=== PATIENT | female | born 1985 | race Caucasian/White ===

== ENCOUNTER → 2017-12-05 13:30 | Outpatient (REF) | payer MEDICAID, SELFPAY ==
[2017-12-05 18:50] LABS: Amphetamine/Metha Screen,Urine Negative ng/mL (<1000); Barbiturates Screen,Urine Negative ng/mL (<200); Benzodiazepines Screen,Urine Positive ng/mL (200); Cannabinoid Screen,Urine Negative ng/mL (<50); Cocaine Screen,Urine Negative ng/g (<300); Methadone Screen,Urine Negative ng/mL (<300); Opiate Screen,Urine Negative ng/mL (<300); Phencyclidine Screen,Urine Negative ng/mL (<25)
== END ==
LOC: LAB 13:30
PROVIDERS: Visit Provider Nurse Practitioner Family
DX: Z79.899 Other long term (current) drug therapy (principal)
CPT/HCPCS: 80305

== ENCOUNTER → 2017-12-12 09:39 | Outpatient (REF) | payer MEDICAID, SELFPAY ==
[2017-12-12 13:42] LABS: Amphetamine/Metha Screen,Urine Negative ng/mL (<1000); Barbiturates Screen,Urine Negative ng/mL (<200); Benzodiazepines Screen,Urine Positive ng/mL (200); Cannabinoid Screen,Urine Negative ng/mL (<50); Cocaine Screen,Urine Negative ng/g (<300); Methadone Screen,Urine Negative ng/mL (<300); Opiate Screen,Urine Negative ng/mL (<300); Phencyclidine Screen,Urine Negative ng/mL (<25)
== END ==
LOC: LAB 09:39
PROVIDERS: Visit Provider Emergency Medicine
DX: F41.9 Anxiety disorder, unspecified (principal)
CPT/HCPCS: 80305

== ENCOUNTER 2020-07-04 16:12 | Emergency (ER) | payer OTHER, SELFPAY ==
[2020-07-04 16:38] VITALS: BP 126/87; PULSE 71; RESP 19; TEMP 36.6; O2SAT 99; BMI 27.3
--- NOTE | 2020-07-04 16:41 | HMH.EDUTC ---
[facility] [place] Disposition Clinical Impression: Exposure to COVID-19 virus Disposition: Home, Self-Care Condition on Discharge: Good Instructions: Preventing the Spread of Coronavirus Discharge Instructions Additional Instructions: Drink plenty of fluids. Take tylenol or ibuprofen for pain or fever. Take the medications as directed. Follow up with your regular doctor. GO TO THE ER FOR ANY WORSENING SYMPTOMS Referrals: PCP,No [Primary Care Provider] - Time of Disposition: 16:42 Medical Decision Making - Medical Records Medical records reviewed: No: I reviewed the patient's medical records. - Guille Inquiry Pt receiving controlled substance: No Vital Signs: 07/04/20 16:38 07/04/20 16:48 Temperature 97.8 F 97.8 F Temperature Source Oral Oral Pulse Rate 71 Pulse Rate [Radial] 71 Respiratory Rate 19 19 Blood Pressure 126/87 Blood Pressure [Right Arm] 126/87 Blood Pressure Mean [Right Arm] 100 Blood Pressure Source Automatic Cuff Blood Pressure Source [Right Arm] Automatic Cuff Blood Pressure Position Sitting Blood Pressure Position [Right Arm] Sitting 02 Sat by Pulse Oximetry 99 Oxygen Delivery Method Room Air Room Air Orders (Tests/Meds): ORDERS Category Date Time Status Covid-19 Nasal PCR ([facility]) Stat Lab 07/04/20 16:23 Received [facility] [place] HPI - General Stated complaint: covid test Time Seen by Provider: 07/04/20 16:41 Mode of Arrival: Ambulatory Source of Information: Patient Limitations: No Limitations Description of Symptoms (Recalled from Triage Doc. by RN): covid test, no symptoms, no exposure HEENT Symptoms (Recalled from RN notes): No Resp Symptoms (Recalled from RN notes): No Skin Symptoms (Recalled from RN notes): No MS Symptoms (Recalled from RN notes): No Functional Status (Recalled from RN notes): wnl - History of Present Illness Provider Complaint: She was exposed to covid by a coworker. She denies any symptoms at this time. - Related Data Home Medications Medication Instructions Recorded Confirmed buprenorphine 8 mg-naloxone 2 mg 2 tab SUBLINGUAL DAILY tab 06/19/20 06/19/20 sublingual tablet Previous Rx's Medication Instructions Recorded amoxicillin 875 mg tablet 875 mg PO BID #20 tab 06/19/20 buspirone 5 mg tablet 5 mg PO BID #60 tab 06/19/20 lisinopril 10 1 tab PO DAILY #90 tab 06/19/20 mg-hydrochlorothiazide 12.5 mg tablet norgestimate-ethinyl estradiol 1 tab PO DAILY #28 tab 06/19/20 0.18 mg/0.215mg/0.25mg-35 mcg(28)tablet ropinirole 1 mg tablet 1 mg PO HS #30 tab 06/19/20 Allergies Allergy/AdvReac Type Severity Reaction Status Date / Time No Known Allergies Allergy Verified 06/19/20 08:42 - Worker's Comp Is this a Worker's Comp case?: No [facility] History - Hepatitis A Screen Drug use history?: No High risk sexual behaviors?: No History of sexually transmitted infection?: No Currently employed?: No Childcare worker?: No Do you have indoor plumbing?: Yes Do you have electricity?: Yes Attestation statement:: This patient has been screened for Hepatitis A risk factors. I have reviewed the patient's past medical history: Yes Medical History: Reports:: Anxiety, Asthma, Depression, Hypertension Other Medical History: Reports: Other Comment: BACK SPASMS. RESTLESS LEG SYNDROME Laterality Cases: Bilateral: Tonsillectomy Other Surgeries: Yes: Other Amputation: No Fractures: Yes Comment: RIGHT FOOT - Social History Smoking Status: Never smoker Alcohol Intake: never Substance Use Type: former substance user, heroin Occupational Status: other Housing: house Household Members: family - Psychiatric History Pschychiatric History:: Reports:: Anxiety, Depression Family Hx:: Hypertension ROS Obtained: Yes All systems reviewed & no additional complaints - Constitutional Constitutional: Reports system reviewed and no additional complaints, except as docu - Eyes Eyes: Reports system reviewed and no additional compla
[2020-07-04 16:48] VITALS: BP 126/87; PULSE 71; RESP 19; TEMP 36.6; O2SAT 99
--- NOTE | 2020-07-05 09:32 | PC.NURSE ---
voice mail left for patient to return call
--- NOTE | 2020-07-05 10:56 | PC.NURSE ---
PATIENT NOTIFIED OF POSITIVE COVID TEST AT THIS TIME
== END 2020-07-04 16:50 | disposition home or self-care (01) ==
PROVIDERS: Emergency Provider Nurse Practitioner Family
DX: U07.1 COVID-19 (principal); I10 Essential (primary) hypertension; F41.8 Other specified anxiety disorders
CPT/HCPCS: 99201; U0003

== ENCOUNTER 2020-07-13 13:48 | Emergency (ER) | payer OTHER, SELFPAY ==
[2020-07-13 13:56] VITALS: BP 151/80; PULSE 78; RESP 20; TEMP 36.9; O2SAT 100; BMI 28.1
--- NOTE | 2020-07-13 14:01 | HMH.EDUTC ---
[facility] [place] Disposition Clinical Impression: Encounter for laboratory testing for COVID-19 virus Disposition: Home, Self-Care Condition on Discharge: Good Instructions: Preventing the Spread of Coronavirus Discharge Instructions Additional Instructions: You were tested for today for COVID19 your test result should be back in the next 24-48 hours, you may call to the [facility] to see if your test results are back in the next 48 hours [phone] [facility] hours are 9am-9pm You was given a handout with instructions for Self Quarantine and Self isolation for while you wait on test results and what to do if they are positive If you are positive the Health Dept will be contacting you also Referrals: PCP,No [Primary Care Provider] - As needed Time of Disposition: 14:08 Medical Decision Making - Guille Inquiry Pt receiving controlled substance: Estelita Han was queried for this patient: No Vital Signs: 07/13/20 13:56 Temperature 98.4 F Temperature Source Oral Pulse Rate [Radial] 78 Respiratory Rate 20 Blood Pressure [Right Arm] 151/80 H Blood Pressure Mean [Right Arm] 103 Blood Pressure Source [Right Arm] Automatic Cuff Blood Pressure Position [Right Arm] Sitting 02 Sat by Pulse Oximetry 100 Oxygen Delivery Method Room Air Orders (Tests/Meds): ORDERS Category Date Time Status Covid-19 Nasal PCR [facility] Stat Lab 07/13/20 13:52 Received [facility] [place] HPI - General Stated complaint: Covid positive, covid test Time Seen by Provider: 07/13/20 14:01 Mode of Arrival: Ambulatory Source of Information: Patient Limitations: No Limitations Description of Symptoms (Recalled from Triage Doc. by RN): COVID TEST LAST TUESDAY WANTS RE TEST HEENT Symptoms (Recalled from RN notes): No Resp Symptoms (Recalled from RN notes): No Skin Symptoms (Recalled from RN notes): No MS Symptoms (Recalled from RN notes): No Functional Status (Recalled from RN notes): WNL - History of Present Illness Provider Complaint: Patient states that she recently tested positive for COVID on 07/04/20 States that her husbands job wanted her to come back in and get tested again before he can return to work States that she is not having any symptoms and has not been contacted yet by the Health Dept on what she should be doing - Related Data Home Medications Medication Instructions Recorded Confirmed buprenorphine 8 mg-naloxone 2 mg 2 tab SUBLINGUAL DAILY tab 06/19/20 06/19/20 sublingual tablet Previous Rx's Medication Instructions Recorded amoxicillin 875 mg tablet 875 mg PO BID #20 tab 06/19/20 buspirone 5 mg tablet 5 mg PO BID #60 tab 06/19/20 lisinopril 10 1 tab PO DAILY #90 tab 06/19/20 mg-hydrochlorothiazide 12.5 mg tablet norgestimate-ethinyl estradiol 1 tab PO DAILY #28 tab 06/19/20 0.18 mg/0.215mg/0.25mg-35 mcg(28)tablet ropinirole 1 mg tablet 1 mg PO HS #30 tab 06/19/20 albuterol sulfate 90 mcg/actuation 2 puff INHALATION Q6H PRN #18 g 07/09/20 aerosol inhaler Allergies Allergy/AdvReac Type Severity Reaction Status Date / Time No Known Allergies Allergy Verified 06/19/20 08:42 - Worker's Comp Is this a Worker's Comp case?: No [facility] History - Hepatitis A Screen Drug use history?: No High risk sexual behaviors?: No History of sexually transmitted infection?: No Currently employed?: No Childcare worker?: No Do you have indoor plumbing?: Yes Do you have electricity?: Yes Attestation statement:: This patient has been screened for Hepatitis A risk factors. I have reviewed the patient's past medical history: Yes Medical History: Reports:: Anxiety, Asthma, Depression, Hypertension Other Medical History: Reports: Other Comment: BACK SPASMS. RESTLESS LEG SYNDROME Laterality Cases: Bilateral: Tonsillectomy Other Surgeries: Yes: Other Amputation: No Fractures: Yes Comment: RIGHT FOOT - Social History Smoking Status: Never smoker Alcohol Intake: never Substance Use Type: former substance user, heroin Occupationa
[2020-07-13 14:21] VITALS: BP 151/80; PULSE 78; RESP 20; TEMP 36.9; O2SAT 100
[2020-07-14 09:50] LABS: Covid-19 Nasal PCR Sendout UK Not Detected
== END 2020-07-13 14:23 | disposition home or self-care (01) ==
PROVIDERS: Emergency Provider Nurse Practitioner
DX: Z86.19 Personal history of other infectious and parasitic diseases (principal)
CPT/HCPCS: 99201; U0003

== ENCOUNTER 2020-08-15 15:37 | Emergency (ER) | payer OTHER, SELFPAY ==
[2020-08-15 15:50] VITALS: BP 146/95; PULSE 83; RESP 14; TEMP 36.4; O2SAT 100; BMI 27.3
--- NOTE | 2020-08-15 16:15 | HMH.EDUTC ---
[facility] [place] Clinical Impression: Exposure to COVID-19 virus Disposition: Home, Self-Care Condition on Discharge: Good Instructions: Preventing the Spread of Coronavirus Discharge Instructions Referrals: PCP,No [Primary Care Provider] - Time of Disposition: 16:16 Medical Decision Making - Guille Inquiry Pt receiving controlled substance: No Vital Signs: 08/15/20 15:50 Temperature 97.6 F Temperature Source Oral Pulse Rate [Right Brachial] 83 Respiratory Rate 14 Blood Pressure [Right Arm] 146/95 H Blood Pressure Mean [Right Arm] 112 Blood Pressure Source [Right Arm] Automatic Cuff Blood Pressure Position [Right Arm] Sitting 02 Sat by Pulse Oximetry 100 Oxygen Delivery Method Room Air Orders (Tests/Meds): ORDERS Category Date Time Status Covid-19 Nasal PCR ([facility]) Routine Lab 08/15/20 16:00 Received [facility] [place] HPI - General Stated complaint: covid test Time Seen by Provider: 08/15/20 16:15 Mode of Arrival: Ambulatory Source of Information: Patient Limitations: No Limitations Description of Symptoms (Recalled from Triage Doc. by RN): COVID TEST D/T EXPOSURE. DENIES SYMPTOMS HEENT Symptoms (Recalled from RN notes): No Resp Symptoms (Recalled from RN notes): No Skin Symptoms (Recalled from RN notes): No MS Symptoms (Recalled from RN notes): No Functional Status (Recalled from RN notes): WNL - History of Present Illness Provider Complaint: COVID19 exposure 1 week ago and would like to be tested. No symptoms. Relieving factors: none Exacerbating factors: none Associated symptoms: denies other symptoms Treatments prior to arrival: none - Related Data Home Medications Medication Instructions Recorded Confirmed buprenorphine 8 mg-naloxone 2 mg 2 tab SUBLINGUAL DAILY tab 06/19/20 06/19/20 sublingual tablet Previous Rx's Medication Instructions Recorded amoxicillin 875 mg tablet 875 mg PO BID #20 tab 06/19/20 buspirone 5 mg tablet 5 mg PO BID #60 tab 06/19/20 lisinopril 10 1 tab PO DAILY #90 tab 06/19/20 mg-hydrochlorothiazide 12.5 mg tablet norgestimate-ethinyl estradiol 1 tab PO DAILY #28 tab 06/19/20 0.18 mg/0.215mg/0.25mg-35 mcg(28)tablet ropinirole 1 mg tablet 1 mg PO HS #30 tab 06/19/20 albuterol sulfate 90 mcg/actuation See Rx Instructions .ROUTE 07/14/20 aerosol inhaler .COMPLEX #18 g Allergies Allergy/AdvReac Type Severity Reaction Status Date / Time No Known Allergies Allergy Verified 06/19/20 08:42 - Worker's Comp Is this a Worker's Comp case?: No [facility] History - Hepatitis A Screen Drug use history?: No High risk sexual behaviors?: No History of sexually transmitted infection?: No Currently employed?: No Childcare worker?: No Do you have indoor plumbing?: Yes Do you have electricity?: Yes Attestation statement:: This patient has been screened for Hepatitis A risk factors. I have reviewed the patient's past medical history: Yes Medical History: Reports:: Anxiety, Asthma, Depression, Hypertension Other Medical History: Reports: Other Comment: BACK SPASMS. RESTLESS LEG SYNDROME Laterality Cases: Bilateral: Tonsillectomy Other Surgeries: Yes: Other Amputation: No Fractures: Yes Comment: RIGHT FOOT - Social History Smoking Status: Never smoker Alcohol Intake: never Substance Use Type: former substance user, heroin Occupational Status: other Housing: house Household Members: family - Psychiatric History Pschychiatric History:: Reports:: Anxiety, Depression Family Hx:: Hypertension ROS Obtained: Yes All systems reviewed & no additional complaints Physical Exam - General General appearance: alert, in no apparent distress - Head Head exam: normocephalic - Eye Eye exam: Present: PERRL - ENT ENT exam: Present: normal oropharynx - Respiratory Respiratory exam: Present: normal lung sounds bilaterally - Cardiovascular Cardiovascular exam: Present: regular rate, normal rhythm - Neurological Exam Neurological exam:
[2020-08-15 16:16] VITALS: BP 146/95; PULSE 83; RESP 14; TEMP 36.4; O2SAT 100
== END 2020-08-15 16:24 | disposition home or self-care (01) ==
PROVIDERS: Emergency Provider Physician Assistant
DX: Z20.822 Contact with and (suspected) exposure to COVID-19 (principal); I10 Essential (primary) hypertension; F41.8 Other specified anxiety disorders; J45.909 Unspecified asthma, uncomplicated; G25.81 Restless legs syndrome; Z79.899 Other long term (current) drug therapy
CPT/HCPCS: 99202; G0463; U0003

== ENCOUNTER 2021-03-20 17:18 | Emergency (ER) | payer OTHER, SELFPAY ==
[2021-03-20 17:20] VITALS: BP 105/64; PULSE 61; RESP 20; TEMP 37; O2SAT 98; BMI 28.8
--- NOTE | 2021-03-20 17:58 | HMH.EDUTC ---
[facility] [place] Clinical Impression: Exposure to COVID-19 virus Disposition: Home, Self-Care Condition on Discharge: Good Instructions: DI for COVID-19 (Suspected or Confirmed ), Coronavirus Disease 2019, Preventing the Spread of Coronavirus Discharge Instructions Additional Instructions: *Monitor Temp, Over the counter Motrin or Tylenol as directed/as needed Tylenol every 4 hours and Motrin every 6 hours (as long as your family doctor has told you that you can take it) for fever or pain. and straight to ER if unable to lower temp less than 101.0 after medication given Follow up IMMEDIATELY for new or worsening symptoms or no Noticeable improvement over the next 48-72 hours. 911 for difficulty breathing or swallowing You were tested for today for COVID19 your test result should be back in the next 24-48 hours, you may call to the [facility] to see if your test results are back in the next 48 hours [phone] [facility] hours are 9am-9pm You was given a handout with instructions for Self Quarantine and Self isolation for while you wait on test results and what to do if they are positive If you are positive the Health Dept will be contacting you also Make sure to take your Vitamins Vit. C Vit D and Zinc if you can take them Referrals: Provider,Referral, MD [Primary Care Provider] - As needed Time of Disposition: 17:59 Medical Decision Making - Guille Inquiry Pt receiving controlled substance: No Guille was queried for this patient: No Vital Signs: 03/20/21 17:20 Temperature 98.6 F Temperature Source Oral Pulse Rate [Right Brachial] 61 Respiratory Rate 20 Blood Pressure [Right Arm] 105/64 L Blood Pressure Mean [Right Arm] 77 Blood Pressure Source [Right Arm] Automatic Cuff Blood Pressure Position [Right Arm] Sitting 02 Sat by Pulse Oximetry 98 Oxygen Delivery Method Room Air Orders (Tests/Meds): ORDERS Category Date Time Status Covid-19 Nasal PCR ([facility]) Routine Lab 03/20/21 17:59 [place]dered [facility] [place] - General Stated complaint: covid test Time Seen by Provider: 03/20/21 17:58 Mode of Arrival: Ambulatory Source of Information: Patient Limitations: No Limitations Description of Symptoms (Recalled from Triage Doc. by RN): COVID TEST D/T EXPOSURE HEENT Symptoms (Recalled from RN notes): No Resp Symptoms (Recalled from RN notes): No Skin Symptoms (Recalled from RN notes): No MS Symptoms (Recalled from RN notes): No Functional Status (Recalled from RN notes): WNL - History of Present Illness Provider Complaint: Patient states that she was recently around someone that tested positive for COVID but she is not having any symptoms States that she was around them about a week ago and they told her to come in this week to get tested - Related Data Home Medications Medication Instructions Recorded Confirmed buprenorphine 8 mg-naloxone 2 mg 2 tab SUBLINGUAL DAILY tab 06/19/20 06/19/20 sublingual tablet Previous Rx's Medication Instructions Recorded amoxicillin 875 mg tablet 875 mg PO BID #20 tab 06/19/20 buspirone 5 mg tablet 5 mg PO BID #60 tab 06/19/20 lisinopril 10 1 tab PO DAILY #90 tab 06/19/20 mg-hydrochlorothiazide 12.5 mg tablet norgestimate-ethinyl estradiol 1 tab PO DAILY #28 tab 06/19/20 0.18 mg/0.215mg/0.25mg-35 mcg(28)tablet ropinirole 1 mg tablet 1 mg PO HS #30 tab 06/19/20 albuterol sulfate 90 mcg/actuation See Rx Instructions .ROUTE 07/14/20 aerosol inhaler .COMPLEX #18 g Allergies Allergy/AdvReac Type Severity Reaction Status Date / Time No Known Allergies Allergy Verified 06/19/20 08:42 - Worker's Comp Is this a Worker's Comp case?: No H History - Hepatitis A Screen Drug use history?: No High risk sexual behaviors?: No History of sexually transmitted infection?: No Currently employed?: No Childcare worker?: No Do you have indoor plumbing?: Yes Do you have electricity?: Yes Attestation statement:: This patient has been screened for Hepatitis A risk fa
[2021-03-20 18:04] VITALS: BP 105/64; PULSE 61; RESP 20; TEMP 37; O2SAT 98
== END 2021-03-20 18:11 | disposition home or self-care (01) ==
PROVIDERS: Emergency Provider Nurse Practitioner
DX: Z20.822 Contact with and (suspected) exposure to COVID-19 (principal); I10 Essential (primary) hypertension; F41.8 Other specified anxiety disorders; Z79.899 Other long term (current) drug therapy
CPT/HCPCS: 99202; G0463; U0003

== ENCOUNTER 2021-07-22 11:24 | Emergency (ER) | payer OTHER, SELFPAY ==
[2021-07-22 12:48] VITALS: BP 144/88; PULSE 70; RESP 22; TEMP 36.9; O2SAT 99; BMI 28.1
--- NOTE | 2021-07-22 13:14 | HMH.EDUTC ---
[facility] [place] Disposition Clinical Impression: Sinusitis Qualifiers: Sinusitis location: unspecified location Chronicity: unspecified Qualified Code(s): J32.9 - Chronic sinusitis, unspecified Disposition: Home, Self-Care Condition on Discharge: Good Instructions: Sinusitis, DI for Sinusitis, DI for Viral Upper Respiratory Infection -- Adult Additional Instructions: *Monitor Temp, Over the counter Motrin or Tylenol as directed/as needed Tylenol every 4 hours and Motrin every 6 hours (as long as your family doctor has told you that you can take it) for fever or pain. and straight to ER if unable to lower temp less than 101.0 after medication given *Warm salt water gargles may help to soothe the throat *Throat Lozenges *Warm fluids like tea with honey may help to soothe the throat *Sleep elevated *Humidifier/Vaporizer *Flonase 2 sprays in each nostril daily but be aware that it may take 2-3 days before you notice improvement Follow up IMMEDIATELY for new or worsening symptoms or no Noticeable improvement over the next 48-72 hours. 911 for difficulty breathing or swallowing Prescriptions: methylPREDNISolone [Medrol 4mg tab] 4 mg PO DIRECTED #21 tab Transmission Status: Pending to [facility] Azithromycin [Z-Ermias 250mg Tab] 250 mg PO DIRECTED #6 tab Transmission Status: Pending to [facility] Referrals: Malik High MD [Primary Care Provider] - As needed Forms: Work/School Release Medical Decision Making - Guille Inquiry Pt receiving controlled substance: No Guille was queried for this patient: No Vital Signs: 07/22/21 12:48 Temperature 98.4 F Temperature Source Oral Pulse Rate [Right Brachial] 70 Respiratory Rate 22 Blood Pressure [Right Arm] 144/88 H Blood Pressure Mean [Right Arm] 106 Blood Pressure Source [Right Arm] Automatic Cuff Blood Pressure Position [Right Arm] Sitting 02 Sat by Pulse Oximetry 99 Medical Decision Narrative: Patient states that she has taken azithromycin and Medrol in the past without complications or reactions [facility] [place] HPI - General Stated complaint: possible sinus infection Time Seen by Provider: 07/22/21 13:14 Description of Symptoms (Recalled from Triage Doc. by RN): pt states that she has a sinus infection last week and didn't feel up to going to work today and is wanting to obtain work note HEENT Symptoms (Recalled from RN notes): No Resp Symptoms (Recalled from RN notes): No Skin Symptoms (Recalled from RN notes): No MS Symptoms (Recalled from RN notes): No Functional Status (Recalled from RN notes): wnl - History of Present Illness Provider Complaint: Patient state that she started about a week ago feeling like she may have a sinus infection States that for the last few days she has been having sinus headache and pressure States that she hasnt been able to go to work for the last few days and they made her come in and get a doctors note - Related Data Home Medications Medication Instructions Recorded Confirmed buprenorphine 8 mg-naloxone 2 mg 2 tab SUBLINGUAL DAILY tab 06/19/20 06/19/20 sublingual tablet Previous Rx's Medication Instructions Recorded amoxicillin 875 mg tablet 875 mg PO BID #20 tab 06/19/20 buspirone 5 mg tablet 5 mg PO BID #60 tab 06/19/20 lisinopril 10 1 tab PO DAILY #90 tab 06/19/20 mg-hydrochlorothiazide 12.5 mg tablet norgestimate-ethinyl estradiol 1 tab PO DAILY #28 tab 06/19/20 0.18 mg/0.215mg/0.25mg-35 mcg(28)tablet ropinirole 1 mg tablet 1 mg PO HS #30 tab 06/19/20 albuterol sulfate 90 mcg/actuation See Rx Instructions .ROUTE 07/14/20 aerosol inhaler .COMPLEX #18 g Azithromycin [Z-Ermias 250mg Tab] 250 mg PO DIRECTED #6 tab 07/22/21 methylPREDNISolone [Medrol 4mg 4 mg PO DIRECTED #21 tab 07/22/21 tab] Allergies Allergy/AdvReac Type Severity Reaction Status Date / Time No Known Allergies Allergy Verified 06/19/20 08:42 - Worker's Comp Is this a Worker's
[2021-07-22 13:25] VITALS: BP 144/80; PULSE 70; RESP 22; TEMP 36.9; O2SAT 99
== END 2021-07-22 13:30 | disposition home or self-care (01) ==
PROVIDERS: Emergency Provider Nurse Practitioner; PCP Emergency Medicine
DX: J32.9 Chronic sinusitis, unspecified (principal); F41.8 Other specified anxiety disorders; I10 Essential (primary) hypertension; F17.210 Nicotine dependence, cigarettes, uncomplicated
CPT/HCPCS: 99202; G0463

== ENCOUNTER 2022-01-22 18:47 | Emergency (ER) | payer OTHER, SELFPAY ==
[2022-01-22 18:47] VITALS: BP 165/101; PULSE 113; RESP 16; TEMP 37.3; O2SAT 98; BMI 27.3
[2022-01-22 19:15] VITALS: BP 139/88; PULSE 94; RESP 16; O2SAT 93
--- NOTE | 2022-01-22 19:18 | PC.NURSE ---
pt states she is unable to urinate at present
[2022-01-22 19:34] LABS: Basophils # 0.2 K/mm3 (0-0.2); Basophils % 2.8 % (0.1-2.0); Eosinophils # 0.1 K/mm3 (0.0-0.4); Hematocrit 45.6 % (37.0-47.0); Hemoglobin 14.2 g/dL (12.2-16.2); Lymphocytes # 2.3 K/mm3 (0.7-4.5); Lymphocytes % 37.6 % (10-50); Mean Corpuscular HGB Conc 31.2 g/dL (31.8-35.4); Mean Platelet Volume 7.7 fl (7.4-10.4); Monocytes # 0.5 K/mm3 (0.1-1.0); Monocytes % 8.2 % (1.7-9.3); Neutrophils # 3.1 K/mm3 (1.8-7.8); Neutrophils % 50.5 % (37.0-80.0); Platelet Count 244 K/mm3 (142-424); Red Cell Distribution Width 17.1 % (11.5-17.5); White Blood Count 6.1 K/mm3 (4.8-10.8)
[2022-01-22 19:36] LABS: Alanine Aminotransferase 111 U/L (12-78); Albumin Level 4.6 g/dl (3.5-5.0); Alkaline Phosphatase 77 U/L (38-126); Anion Gap 17.1 mEq/L (5-15); Aspartate Amino Transferase 96 U/L (14-36); Bilirubin,Total 0.3 mg/dl (0.2-1.3); Blood Urea Nitrogen 11 mg/dl (7-17); Calcium 9.8 mg/dl (8.4-10.2); Carbon Dioxide 25 mmol/L (22.0-30.0); Chloride 104 mmol/L (98-107); Creatinine Clearance Estimated 127 mL/min (50-200); Estimated Glomerular Filt Rate 82 ml/min (>60); GFR (African American) 99 ML/MIN (>60); Globulin 4.5 g/dL (1.3-3.2); Glucose 100 mg/dl (74-100); Potassium 4.1 mmoL/L (3.5-5.1); Sodium 142 mmol/L (136-145); Total Protein,Serum 9.1 g/dl (6.3-8.2)
--- NOTE | 2022-01-22 19:37 | ECG_ITS ---
APPROVED REPORT Exam: Resting ECG HR:88 bpm ECG Measurements Heart Rate 88 AXES UT 163 P 40 QRSd 98 QRS 18 QT 386 T 42 QTc 432 Conclusion SINUS RHYTHM POSSIBLE RIGHT VENTRICULAR CONDUCTION DELAY [RSR (QR) IN V1/V2] BORDERLINE ECG UNCONFIRMED REPORT Electronically signed by : Garry Ramirez MD 01/23/2022 15:35:41
[2022-01-22 19:54] LABS: Troponin I < 0.01 ng/ml (0.00-0.034)
[2022-01-22 20:00] VITALS: BP 146/88; PULSE 85; RESP 13; O2SAT 99
--- NOTE | 2022-01-22 20:10 | HMH.EDGENADL ---
ED Disposition Clinical Impression: Left against medical advice Disposition: Left Against Medical Advice Condition on Discharge: Undetermined Instructions: DI for Seizure Disorder -- Adult, DI for Seizure (Not Epilepsy/Seizure Disorder), DI for Seizure Disorder -- Child Referrals: Malik High MD [Primary Care Provider] - - Critical Care Critical Care Time: No Attestation: On 01/22/22, the high probability of a clinically significant, sudden or life threatening deterioration of the following system(s) required my full and direct attention, intervention and personal management. The time I documented below is in addition to time spent performing reported procedures but includes the following listed in this critical care notation. Medical Decision Making - Medical Records Medical records reviewed: Yes: I reviewed the patient's medical records. - Guille Inquiry Pt receiving controlled substance: No Vital Signs: 01/22/22 18:47 01/22/22 19:15 01/22/22 20:00 Temperature 99.1 F Temperature Source Oral Pulse Rate 94 H 85 Pulse Rate [Radial] 113 H Respiratory Rate 16 16 13 Blood Pressure 139/88 146/88 H Blood Pressure [Right Arm] 165/101 H Blood Pressure Mean [Right Arm] 122 Blood Pressure Source Blood Pressure Position Blood Pressure Position [Right Arm] Sitting 02 Sat by Pulse Oximetry 98 93 L 99 Oxygen Delivery Method Room Air Room Air Room Air 01/22/22 20:31 01/22/22 21:42 Temperature 98.4 F Temperature Source Oral Pulse Rate 86 74 Pulse Rate [Radial] Respiratory Rate 18 18 Blood Pressure 150/86 H 141/90 H Blood Pressure [Right Arm] Blood Pressure Mean [Right Arm] Blood Pressure Source Automatic Cuff Blood Pressure Position Sitting Blood Pressure Position [Right Arm] 02 Sat by Pulse Oximetry 98 Oxygen Delivery Method Room Air Room Air - Lab Data Lab results reviewed: Yes: I reviewed the patient's lab results. Lab Results 01/22/22 18:55: WBC 6.1, RBC 5.70 H, Hgb 14.2, Hct 45.6, MCV 80.0 L, MCH 25.0 L, MCHC 31.2 L, RDW 17.1, Plt Count 244, MPV 7.7, Neut % (Auto) 50.5, Lymph % (Auto) 37.6, [place] % (Auto) 8.2, Eos % (Auto) 1.0, Baso % (Auto) 2.8 H, Neut # (Auto) 3.1, Lymph # (Auto) 2.3, [place] # (Auto) 0.5, Eos # (Auto) 0.1, Baso # (Auto) 0.2 01/22/22 18:55: Sodium 142, Potassium 4.1, Chloride 104, Carbon Dioxide 25, Anion Gap 17.1 H, BUN 11, Creatinine 0.80, Estimated Creat Clear 127, Estimated GFR 82, Est GFR ( Amer) 99, Glucose 100, Calcium 9.8, Total Bilirubin 0.3, AST 96 H, ALT 111 H, Alkaline Phosphatase 77, Total Protein 9.1 H, Albumin 4.6, Globulin 4.5 H, Albumin/Globulin Ratio 1.0 L 01/22/22 18:55: Troponin I < 0.01 01/22/22 18:55: D-Dimer 0.57 H Result diagrams: 01/22/22 18:55 01/22/22 18:55 Orders (Tests/Meds): ED MEDICATIONS Discontinued Medications Generic Name Dose Route Start Last Admin Trade Name Freq PRN Reason Stop Dose Admin Sodium Chloride 1,000 mls @ 999 mls/hr 01/22/22 19:15 01/22/22 19:16 Sod Chlor 0.9% 1000ml Bag IV 01/22/22 20:15 999 mls/hr .Q1H1M JEZ Administration Medical Decision Narrative: Patient is a 36-year-old female presenting with a chief complaint of syncope. Differential diagnosis includes, but is not limited to, vasovagal syncope, orthostatic hypotension, dehydration, DVT/PE, seizure, other. On initial exam, patient is hemodynamically stable and nontoxic-appearing. Patient feels at baseline on my exam. She was evaluate CBC, CMP, troponin, D-dimer, test, UDS and CT head. Prior to full evaluation, patient left AGAINST MEDICAL ADVICE. I was unable to personally speak with patient as I had a CODE BLUE in the emergency department. I later reviewed patient's lab work which showed normal first troponin but mildly elevated D-dimer. Given that patient has had fluids on my exam and stated she felt better, I believe the patient does not need further work-up per year's criteria for pulmonary emb
[2022-01-22 20:31] VITALS: BP 150/86; PULSE 86; RESP 18; O2SAT 98
[2022-01-22 21:16] LABS: D-Dimer 0.57 ug/mL (0.0-0.5)
[2022-01-22 21:42] VITALS: BP 141/90; PULSE 74; RESP 18; TEMP 36.9; O2SAT 99
== END 2022-01-22 21:42 | disposition left against medical advice (07) ==
PROVIDERS: Emergency Medicine; Emergency Provider Emergency Medicine; PCP Emergency Medicine
DX: Z53.29 Procedure and treatment not carried out because of patient's decision for other reasons (principal); R55 Syncope and collapse; R56.9 Unspecified convulsions
CPT/HCPCS: 80053; 84484; 85025; 85378; 93005; 99283

== ENCOUNTER 2022-01-25 10:45 | Emergency (ER) | payer OTHER, SELFPAY ==
[2022-01-25 10:48] VITALS: BP 164/97; PULSE 66; RESP 18; TEMP 36.6; O2SAT 97; BMI 28.7
--- NOTE | 2022-01-25 10:50 | PC.NURSE ---
JONO CHAMPION at
--- NOTE | 2022-01-25 10:57 | HMH.EDFALL ---
ED Disposition Clinical Impression: Concussion Qualifiers: Encounter type: subsequent encounter Loss of consciousness presence/duration: with LOC of 30 min or less Qualified Code(s): S06.0X1D - Concussion with loss of consciousness of 30 minutes or less, subsequent encounter Disposition: Home, Self-Care Condition on Discharge: Fair Instructions: DI for Concussion Additional Instructions: You may take [id number] Tylenol and/or Motrin for your headache. Follow-up with your primary care physician in about 1 week or so if you do not feel any better. Return to the emergency department immediately if you feel worse in any way. Referrals: Malik High MD [Primary Care Provider] - - Critical Care Critical Care Time: No Attestation: On 01/25/22, the high probability of a clinically significant, sudden or life threatening deterioration of the following system(s) required my full and direct attention, intervention and personal management. The time I documented below is in addition to time spent performing reported procedures but includes the following listed in this critical care notation. Medical Decision Making - Guille Inquiry Pt receiving controlled substance: No Medical Decision Narrative: The patient presents to the emergency department 3 days after a fall. At this time the patient is neurologically intact. There is no evidence of intracranial bleeding. The patient's symptoms are consistent with a concussion. There is no objective finding of facial or head trauma. The patient's neurologic exam is normal. The patient C-spine is nontender. The remainder of the patient's exam is normal. I do not feel that the patient requires a CT examination of the head at this time. The likelihood of finding an intracranial bleed or other pathology that requires immediate intervention is relatively low compared to the risk of radiation associated with a CT. The patient has no other bony tenderness. Therefore, the patient will be discharged in stable condition. Fall HPI - General Stated Complaint: AO fall 01/22 head injury, dizziness Time Seen by Provider: 01/25/22 10:57 Source of Information: Patient - History of Present Illness HPI Narrative: The patient presents to the emergency department after having fallen on Tuesday at [facility]. She seems to have had a syncopal episode at the time. She had been working in the sun and heat all day prior to the syncopal episode. She was seen in this emergency department at that time but left AGAINST MEDICAL ADVICE prior to obtaining a head CT. She returns today to make sure that she is okay. She complains of some light sensitivity/photophobia and some moderate headache that is persistent but not constant. Denies any neurologic symptoms and or repeated vomiting. Also complains of a small abrasion to the right flank. MD complaint: fall - Related Data Home Medications Medication Instructions Recorded Confirmed buprenorphine 8 mg-naloxone 2 mg 2 tab SUBLINGUAL DAILY tab 06/19/20 06/19/20 sublingual tablet Previous Rx's Medication Instructions Recorded amoxicillin 875 mg tablet 875 mg PO BID #20 tab 06/19/20 buspirone 5 mg tablet 5 mg PO BID #60 tab 06/19/20 lisinopril 10 1 tab PO DAILY #90 tab 06/19/20 mg-hydrochlorothiazide 12.5 mg tablet norgestimate-ethinyl estradiol 1 tab PO DAILY #28 tab 06/19/20 0.18 mg/0.215mg/0.25mg-35 mcg(28)tablet ropinirole 1 mg tablet 1 mg PO HS #30 tab 06/19/20 albuterol sulfate 90 mcg/actuation See Rx Instructions .ROUTE 07/14/20 aerosol inhaler .COMPLEX #18 g Azithromycin [Z-Ermias 250mg Tab] 250 mg PO DIRECTED #6 tab 07/22/21 methylPREDNISolone [Medrol 4mg 4 mg PO DIRECTED #21 tab 07/22/21 tab] Allergies Allergy/AdvReac Type Severity Reaction Status Date / Time No Known Allergies Allergy Verified 06/19/20 08:42 [facility] History - Hepatitis A Screen Drug use history?: No Attestation statement
[2022-01-25 11:10] VITALS: BP 152/91; PULSE 77; RESP 18; TEMP 36.6; O2SAT 95
== END 2022-01-25 11:12 | disposition home or self-care (01) ==
PROVIDERS: Emergency Provider Emergency Medicine; PCP Emergency Medicine
DX: S06.0X1A Concussion with loss of consciousness of 30 minutes or less, initial encounter (principal); R55 Syncope and collapse
CPT/HCPCS: 99282

== ENCOUNTER 2023-01-10 14:51 | Observation (INO) | payer OTHER, SELFPAY ==
[2023-01-10] VITALS (12 sets, daily range): BP systolic 116–202; BP diastolic 67–139; PULSE 35–59; RESP 14–30; TEMP 35.9–37; O2SAT 83–100; BMI 36.0; BMI 28.7; BMI 32.7
--- NOTE | 2023-01-10 15:39 | HMH.EDGENADL ---
Discharge Plan Disposition Patient Disposition: Admitted Condition: Serious Chief Complaint: Overdose Prescriptions Prescriptions: No Action buprenorphine-naloxone 8-2 mg tablet, sublingual 2 tab SUBLINGUAL DAILY amoxicillin 875 mg tablet 875 mg PO BID Qty: 20 0RF norgestimate-ethinyl estradiol [Tri-Sprintec (28)] 0.18/0.215/0.25 mg-35 mcg (28) tablet 1 tab PO DAILY Qty: 28 12RF lisinopril-hydrochlorothiazide 10-12.5 mg tablet 1 tab PO DAILY Qty: 90 3RF ropinirole 1 mg tablet 1 mg PO HS Qty: 30 2RF Rx Instructions: administer 1-3 hours before bedtime buspirone 5 mg tablet 5 mg PO BID Qty: 60 2RF albuterol sulfate 90 mcg/actuation HFA aerosol inhaler See Rx Instructions .ROUTE .COMPLEX Qty: 18 3RF Dose Instruction: INHALE 2 PUFFS BY MOUTH EVERY 6 HOURS NEEDED FOR SHORTNESS OF BREATH Rx Instructions: INHALE 2 PUFFS BY MOUTH EVERY 6 HOURS NEEDED FOR SHORTNESS OF BREATH azithromycin 250 MG tablet 250 mg PO DIRECTED Qty: 6 0RF Rx Instructions: Take two (2) tablets on day #1, then one (1) tablet day #2 thru #5 methylprednisolone 4 MG tablet 4 mg PO DIRECTED Qty: 21 0RF Rx Instructions: Take as directed on package instructions Referrals Follow up/Referrals: Provider,Referral, MD [Primary Care Provider] - See instructions Clinical Impressions Clinical Impression: Acute alteration in mental status, Opioid overdose Discharge ED Provider: Ryan Weldon General Adult HPI General Chief complaint: Overdose Stated complaint: od Time Seen by Provider: 01/10/23 15:00 History of Present Illness HPI narrative: This is a 37-year-old female who was brought in with altered mental status and pinpoint pupils. No other history is available. Related Data Home Medications Medication Instructions Recorded Confirmed buprenorphine 8 mg-naloxone 2 mg 2 tab sublingual DAILY 06/19/20 06/19/20 sublingual tablet Previous Rx's Medication Instructions Recorded amoxicillin 875 mg tablet 875 mg PO BID #20 tabs 06/19/20 buspirone 5 mg tablet 5 mg PO BID #60 tabs 06/19/20 lisinopril 10 1 tab PO DAILY #90 tabs 20 mg-hydrochlorothiazide 12.5 mg tablet norgestimate-ethinyl estradiol 1 tab PO DAILY #28 tabs 06/19/20 0.18 mg/0.215mg/0.25mg-35 mcg(28)tablet (Tri-Sprintec (28)) ropinirole 1 mg tablet 1 mg PO HS #30 tabs 06/19/20 albuterol sulfate 90 mcg/actuation See Rx Instructions .Route 07/14/20 aerosol inhaler .COMPLEX #18 grams azithromycin 250 mg tablet 250 mg PO DIRECTED #6 tabs 07/22/21 methylprednisolone 4 mg tablet 4 mg PO DIRECTED #21 tabs 07/22/21 Allergies Allergy/AdvReac Type Severity Reaction Status Date / Time No Known Allergies Allergy Verified 06/19/20 08:42 [facility] Disclaimer: The information contained in this section may have been updated after the patient was seen, as this information can be updated by other users. Medical History (Updated 01/10/23 @ 16:52 by Ryan Weldon MD) Dysmenorrhea RLS (restless legs syndrome) Social History Smoking Status: Current every day smoker alcohol intake: never substance use type: former substance user and heroin current occupational status: employed Travel in the last 8 weeks: None household members: family housing: house ROS Obtained: Yes unobtainable due to mental condition Physical Exam Narrative Physical exam: Skin: Warm and dry HEENT: Normocephalic atraumatic extract muscles are intact pupils are pinpoint Neck: Supple nontender Lungs: Clear to auscultation Heart: Regular rate and rhythm Abdomen: NABS soft nontender Extremities: No clubbing cyanosis or edema Neurologic: Patient unresponsive to verbal and noxious stimuli no focal deficits Lymphatic: No cervical or inguinal adenopathy Musculoskeletal: No tenderness of the dorsal or lumbar spine Psych: No SI or HI General General appearance: obtunded Respirator
--- NOTE | 2023-01-10 15:58 | HMH.ITSTN ---
pt is here for an overdose and unable to do a head CT or xrays due to patient not able to be still and being combative. Advised nurse and will cancel order
[2023-01-10 16:06] LABS: Basophils % 0.2 % (0.1-2.0); Eosinophils % 0.2 % (0.1-12.0); Hematocrit 45.9 % (37.0-47.0); Hemoglobin 14.6 g/dL (12.2-16.2); Lymphocytes % 31.3 % (10-50); Mean Corpuscular HGB Conc 31.8 g/dL (31.8-35.4); Mean Corpuscular Hemoglobin 27.5 pg (27.0-31.2); Mean Corpuscular Volume 86.7 fl (81-99); Mean Platelet Volume 8.7 fl (7.4-10.4); Monocytes # 0.5 K/mm3 (0.1-1.0); Monocytes % 7.1 % (1.7-9.3); Neutrophils % 61.1 % (37.0-80.0); Platelet Count 153 K/mm3 (142-424); White Blood Count 6.5 K/mm3 (4.8-10.8)
[2023-01-10 16:07] LABS: Chloride 104 mmol/L (98-107); Sodium 139 mmol/L (136-145)
[2023-01-10 16:08] LABS: Potassium 4.4 mmoL/L (3.5-5.1)
[2023-01-10 16:10] LABS: Alanine Aminotransferase 70 U/L (12-78); Albumin Level 4.1 g/dl (3.5-5.0); Albumin/Globulin Ratio 1.1 (1.1-1.8); Alkaline Phosphatase 60 U/L (38-126); Anion Gap 15.4 mEq/L (5-15); Aspartate Amino Transferase 60 U/L (14-36); Bilirubin,Total 0.4 mg/dl (0.2-1.3); Blood Urea Nitrogen 10 mg/dl (7-17); Carbon Dioxide 24 mmol/L (22.0-30.0); Creatinine Clearance Estimated 139 mL/min (50-200); Estimated Glomerular Filt Rate 81 ml/min (>60); GFR (African American) 98 ML/MIN (>60); Globulin 3.8 g/dL (1.3-3.2); Glucose 126 mg/dl (74-100); Magnesium 1.8 mg/dl (1.6-2.3); Total Protein,Serum 7.9 g/dl (6.3-8.2)
--- NOTE | 2023-01-10 16:14 | PC.NURSE ---
pt waking up some, asked for a blanket, opened eyes when I spoke to her.
[2023-01-10 16:15] LABS: Acetaminophen < 10 ug/ml (10-30); Ethyl Alcohol < 10 mg/dl (0-10); Salicylate < 1.0 mg/dL (2.0-20.0)
--- NOTE | 2023-01-10 16:30 | PC.NURSE ---
contacted pharmacy for andressa pantoja per ER verbal order r/t notifying ER MD pt having decreased responsiveness again
--- NOTE | 2023-01-10 16:47 | PC.NURSE ---
JONO CHAMPION speaking with Dr. Jones
--- NOTE | 2023-01-10 16:55 | PC.NURSE ---
notified mixing house operator of admission
[2023-01-10 17:18] LABS: Coronavirus 19, PCR Not Detected (NotDetected); Influenza A, PCR Not Detected (NotDetected); Influenza B, PCR Not Detected (NotDetected)
--- NOTE | 2023-01-10 17:19 | ECG_ITS ---
APPROVED REPORT Exam: Resting ECG HR:35 bpm ECG Measurements Heart Rate 35 AXES PA 182 P 34 QRSd 101 QRS 21 QT 483 T 42 QTc 383 Conclusion SINUS BRADYCARDIA POSSIBLE RIGHT VENTRICULAR CONDUCTION DELAY [RSR (QR) IN V1/V2] CRITICAL TEST RESULT UNCONFIRMED REPORT Electronically signed by : Garry Ramirez MD 01/11/2023 20:07:51
--- NOTE | 2023-01-10 17:27 | PC.NURSE ---
attempted to call report. nurse will call back from the floor
--- NOTE | 2023-01-10 17:50 | PC.NURSE ---
report called to stoney chappell on second floor at this time, pt more alert at this time.
[2023-01-10 17:54] LABS: Ammonia 25 umol/L (9-30)
[2023-01-10 19:03] LABS: ABG Base Excess -0.8 mmol/L (-2.4-2.3); ABG HCO3 23.1 mmhg (22.0-26.0); ABG Oxygen Saturation 97 % (90-100); ABG PCO2 33.7 mmhg (35.0-45.0); ABG PH 7.45 mmol/L (7.35-7.45); ABG PO2 80.9 mmhg (80-100); ABG TCO2 24.1 mmhg (23-27)
[2023-01-10 19:04] LABS: Allen's Test Acceptable; Source Right Radial
--- NOTE | 2023-01-10 19:27 | PC.NURSE ---
Narcan gtt verified w/ A. Lupe and Sohail Purdy RECORD CLERK, Karen CHAMPION. Narcan gtt currently infusing @ 125 ml/hr. 2mg/hr
--- NOTE | 2023-01-10 19:59 | EXP.HP ---
History of Present Illness *Admission Date: 01/10/23 *Reason for visit:: Change in mental Status *History of present illness: Ms. Chele Nunez is a 37-year-old female with a past medical history of Chronic Pain, HTN, RLS and history of substance abuse. She presented to [facility] due to change in mental status. In the ER on admission she was noted to be lethargic, but would arouse to stimuli. Per MD Attending the patient admitted in the ER to snorting Heroin, Gabapentin and Ativan. She was given Narcan and placed on a Narcan gtt and also received a dose of Romazicon. She is seen following her admission to the floor. She arouses to stimuli, then falls back asleep. She is currently continued on the Narcan gtt. She is bradycardic on the monitor running between 40-50. UDS is pending at this time. CBC and CMP are unremarkable. She is on telemetry and a 1:1 sitter is at bedside. [facility] Disclaimer: The information contained in this section may have been updated after the patient was seen, as this information can be updated by other users. Medical History Dysmenorrhea RLS (restless legs syndrome) Family History Other No significant family history Social History Smoking Status: Current every day smoker alcohol intake: never substance use type: former substance user and heroin current occupational status: employed Travel in the last 8 weeks: None household members: family housing: house Review of Systems Review of Systems Review of systems:: unable to obtain Meds Home Medications and Allergies Home Medications Medication Instructions Recorded Confirmed Type amoxicillin 875 mg tablet 875 mg PO BID #20 tabs 06/19/20 06/19/20 Rx buprenorphine 8 mg-naloxone 2 mg 2 tab sublingual DAILY 06/19/20 06/19/20 History sublingual tablet buspirone 5 mg tablet 5 mg PO BID #60 tabs 06/19/20 06/19/20 Rx lisinopril 10 1 tab PO DAILY #90 tabs 06/19/20 06/19/20 Rx mg-hydrochlorothiazide 12.5 mg tablet norgestimate-ethinyl estradiol 1 tab PO DAILY #28 tabs 06/19/20 06/19/20 Rx 0.18 mg/0.215mg/0.25mg-35 mcg(28)tablet (Tri-Sprintec (28)) ropinirole 1 mg tablet 1 mg PO HS #30 tabs 06/19/20 06/19/20 Rx albuterol sulfate 90 mcg/actuation See Rx Instructions .Route 07/14/20 Rx aerosol inhaler .COMPLEX #18 grams azithromycin 250 mg tablet 250 mg PO DIRECTED #6 tabs 07/22/21 Rx methylprednisolone 4 mg tablet 4 mg PO DIRECTED #21 tabs 07/22/21 Rx New Prescriptions to Start Prescriptions: Allergies Allergy/AdvReac Type Severity Reaction Status Date / Time No Known Allergies Allergy Verified 06/19/20 08:42 Exam Data for Last 24 hours Vital signs and Labs for Last 24 Hours: Temp Pulse Resp BP Pulse Ox 97.9 F 40 L 22 182/99 H 100 01/10/23 18:38 01/10/23 18:38 01/10/23 18:38 01/10/23 18:38 01/10/23 18:38 Laboratory Results - last 24 hr 01/10/23 14:53: WBC 6.5, RBC 5.30, Hgb 14.6, Hct 45.9, MCV 86.7, MCH 27.5, MCHC 31.8, RDW 14.0, Plt Count 153, MPV 8.7, Neut % (Auto) 61.1, Lymph % (Auto) 31.3, [place] % (Auto) 7.1, Eos % (Auto) 0.2, Baso % (Auto) 0.2, Neut # (Auto) 4.0, Lymph # (Auto) 2.0, [place] # (Auto) 0.5, Eos # (Auto) 0.0, Baso # (Auto) 0.0 01/10/23 14:53: Sodium 139, Potassium 4.4, Chloride 104, Carbon Dioxide 24, Anion Gap 15.4 H, BUN 10, Creatinine 0.80, Estimated Creat Clear 139, Estimated GFR 81, Est GFR ( Amer) 98, Glucose 126 H, Calcium 9.0, Magnesium 1.8, Total Bilirubin 0.4, AST 60 H, ALT 70, Alkaline Phosphatase 60, Total Protein 7.9, Albumin 4.1, Globulin 3.8 H, Albumin/Globulin Ratio 1.1, Salicylates < 1.0 L, Acetaminophen < 10 L 01/10/23 14:53: Plasma/Serum Alcohol < 10 01/10/23 16:56: SARS-CoV-2 (PCR) Not detected, Influenza A Untype (PCR) Not detected, Influenza Type B (PCR) Not d
[2023-01-10 21:29] LABS: Urine Pregnancy, HCG Qual. Negative (Negative)
[2023-01-10 21:41] LABS: Amphetamine/Metha Screen,Urine Negative ng/ml (<1000)
[2023-01-10 21:42] LABS: Barbiturates Screen,Urine Negative ng/ml (<200)
[2023-01-10 21:43] LABS: Benzodiazepines Screen,Urine Positive ng/ml (<200); Cannabinoid Screen,Urine Negative ng/ml (<50)
[2023-01-10 21:44] LABS: Cocaine Screen,Urine Negative ng/ml (<300)
[2023-01-10 21:45] LABS: Methadone Screen,Urine Negative ng/ml (<300); Opiate Screen,Urine Negative ng/ml (<300)
[2023-01-10 21:46] LABS: Phencyclidine Screen,Urine Negative ng/ml (<25)
[2023-01-10 22:37] LABS: POC Glucose,Bedside 99 (70-110)
[2023-01-11] VITALS: BP 142/83; PULSE 40; PULSE 49; RESP 20; O2SAT 99
[2023-01-11 02:00] VITALS: BP 157/87; PULSE 38; RESP 18; O2SAT 96
[2023-01-11 03:56] VITALS: BP 122/53; PULSE 50; RESP 26; TEMP 37; O2SAT 97
[2023-01-11 03:57] VITALS: BMI 32.5
[2023-01-11 04:00] VITALS: PULSE 38; O2SAT 99
--- NOTE | 2023-01-11 05:16 | PC.NURSE ---
Patient noted to have variations in LOC throughout shift. Most of shift patient is obtunded and responds only to shaking/pain, however at other times patient will awaken and have appropriate conversation with staff. Oriented x3, disoriented only to date. Narcan drip titrated to 1mg/hr. Patient when awake asking when she can leave, stating she has an appointment in the AM. HR varying between 33-45 bpm most of shift, other VSS. CLAUDINE Cody, sat 1:1 with patient throughout shift.
[2023-01-11 06:00] VITALS: BP 155/86; PULSE 44; PULSE 48; RESP 26; O2SAT 98
--- NOTE | 2023-01-11 07:43 | PC.NURSE ---
Patient called for ride. Patient leaving against medical advice.
--- NOTE | 2023-01-11 11:48 | EXP.DC.SUM ---
General Admission date:: 01/10/23 Discharge date: 01/11/23 HPI HPI HPI: Ms. Chele Nunez is a 37-year-old female with a past medical history of Chronic Pain, HTN, RLS and history of substance abuse. She presented to [facility] due to change in mental status. In the ER on admission she was noted to be lethargic, but would arouse to stimuli. Per MD Attending the patient admitted in the ER to snorting Heroin, Gabapentin and Ativan. She was given Narcan and placed on a Narcan gtt and also received a dose of Romazicon. She is seen following her admission to the floor. She arouses to stimuli, then falls back asleep. She is currently continued on the Narcan gtt. She is bradycardic on the monitor running between 40-50. UDS is pending at this time. CBC and CMP are unremarkable. She is on telemetry and a 1:1 sitter is at bedside. Hospital Course Hospital Course Hospital Course: Patient was admitted for Narcan drip and monitoring overnight on telemetry. Improved by morning. Still bradycardic and not stable for discharge. Patient decided she was leaving regardless of recommendation that she stay for further management. She had woken up enough that she was ready to go. Patient left AGAINST MEDICAL ADVICE. Exam Data for Last 24 hours Vital signs and Labs for Last 24 Hours: Temp Pulse Resp BP Pulse Ox 98.6 F 48 L 26 H 155/86 H 98 01/11/23 03:56 01/11/23 06:00 01/11/23 06:00 01/11/23 06:00 01/11/23 06:00 Laboratory Results - last 24 hr 01/10/23 14:53: WBC 6.5, RBC 5.30, Hgb 14.6, Hct 45.9, MCV 86.7, MCH 27.5, MCHC 31.8, RDW 14.0, Plt Count 153, MPV 8.7, Neut % (Auto) 61.1, Lymph % (Auto) 31.3, [place] % (Auto) 7.1, Eos % (Auto) 0.2, Baso % (Auto) 0.2, Neut # (Auto) 4.0, Lymph # (Auto) 2.0, [place] # (Auto) 0.5, Eos # (Auto) 0.0, Baso # (Auto) 0.0 01/10/23 14:53: Sodium 139, Potassium 4.4, Chloride 104, Carbon Dioxide 24, Anion Gap 15.4 H, BUN 10, Creatinine 0.80, Estimated Creat Clear 139, Estimated GFR 81, Est GFR ( Amer) 98, Glucose 126 H, Calcium 9.0, Magnesium 1.8, Total Bilirubin 0.4, AST 60 H, ALT 70, Alkaline Phosphatase 60, Total Protein 7.9, Albumin 4.1, Globulin 3.8 H, Albumin/Globulin Ratio 1.1, Salicylates < 1.0 L, Acetaminophen < 10 L 01/10/23 14:53: Plasma/Serum Alcohol < 10 01/10/23 16:56: SARS-CoV-2 (PCR) Not detected, Influenza A Untype (PCR) Not detected, Influenza Type B (PCR) Not detected 01/10/23 17:30: Ammonia 25 01/10/23 18:38: Specimen Source Right radial, O2 % 2lpm n/c, ABG pH 7.45, ABG pCO2 33.7 L, ABG pO2 80.9, ABG HCO3 23.1, ABG Total CO2 24.1, ABG O2 Saturation 97, ABG Base Excess -0.8, Alec Test Acceptable 01/10/23 21:14: Urine HCG, Qual Negative 01/10/23 21:14: Urine Opiates Screen Negative, Urine Methadone Screen Negative, Ur Barbituates Screen Negative, Ur Phencyclidine Scrn Negative, Ur Amphetamines Screen Negative, U Benzodiazepines Scrn Positive H, Urine Cocaine Screen Negative, U Marijuana (THC) Screen Negative 01/10/23 22:29: POC Glucose 99 I & O for Last 24 hours: Intake & Output 01/08/23 01/09/23 01/10/23 01/11/23 23:59 23:59 23:59 23:59 Intake Total 801 / 801 Output Total 560 / 560 520 / 520 Balance -560 / -560 281 / 281 Weight 91.881 kg 91.9 kg Results Data Completed and Pending Labs on day of discharge: Labs from last 24 hours 01/10/23 01/10/23 01/10/23 22:29 21:14 21:14 WBC RBC Hgb Hct MCV MCH MCHC RDW Plt Count MPV Neut % (Auto) Lymph % (Auto) [place] % (Auto) Eos % (Auto) Baso % (Auto) Neut # (Auto) Lymph # (Auto) [place] # (Auto) Eos # (Auto) Baso # (Auto) Specimen Source O2 % ABG pH ABG pCO2 ABG pO2 ABG HCO3 ABG Total CO2 ABG O2 Saturation ABG Base Excess Alec Test Sodium Potassium Chloride Carbon Dioxide Anion Gap BUN Creatinine Estimated Creat Clear Estimated GFR Est GFR ( Amer) G
[2023-01-18 04:38] LABS: Opiates Negative (Cutoff=100)
== END 2023-01-11 08:12 | disposition left against medical advice (07) ==
LOC: ER 16:52 → 2ND 17:23
PROVIDERS: Admitting Provider Internal Medicine Adolescent Medicine; Emergency Provider Emergency Medicine; Visit Provider Internal Medicine Adolescent Medicine
DX: T40.1X1A Poisoning by heroin, accidental (unintentional), initial encounter (principal); T42.4X1A Poisoning by benzodiazepines, accidental (unintentional), initial encounter; T42.6X1A Poisoning by other antiepileptic and sedative-hypnotic drugs, accidental (unintentional), initial encounter; T40.2X1A Poisoning by other opioids, accidental (unintentional), initial encounter; F17.210 Nicotine dependence, cigarettes, uncomplicated; I10 Essential (primary) hypertension; Z79.899 Other long term (current) drug therapy; R00.1 Bradycardia, unspecified
CPT/HCPCS: 80053; 80305; 80329; 80361; 80365; 81025; 82140; 82803; 82962; 83735; 85025; 87635; 87636; 93005; 99291; C9803; G0378; G0480; J2310; U0003; U0005

== ENCOUNTER 2023-11-08 14:25 | Emergency (ER) | payer OTHER, SELFPAY ==
[2023-11-08 14:27] VITALS: BP 138/88; PULSE 72; RESP 18; TEMP 36.7; O2SAT 100; BMI 30.4
--- NOTE | 2023-11-08 14:37 | PC.NURSE ---
ANA MCNAIR PA-C AT BEDSIDE
--- NOTE | 2023-11-08 14:44 | HMH.EDGENADL ---
Discharge Plan Disposition Patient Disposition: Home, Self-Care Condition: Good Prescriptions Prescriptions: New naloxone [Narcan] 4 mg/actuation spray,non-aerosol 4 mg intranasal Q2M PRN (Reason: opioid overdose) Qty: 2 0RF Rx Instructions: spray 1 dose into ONE nostril; alternate nostrils w each dose until help arrives No Action buprenorphine-naloxone 8-2 mg tablet, sublingual 2 tab SUBLINGUAL DAILY amoxicillin 875 mg tablet 875 mg PO BID Qty: 20 0RF norgestimate-ethinyl estradiol [Tri-Sprintec (28)] 0.18/0.215/0.25 mg-35 mcg (28) tablet 1 tab PO DAILY Qty: 28 12RF lisinopril-hydrochlorothiazide 10-12.5 mg tablet 1 tab PO DAILY Qty: 90 3RF ropinirole 1 mg tablet 1 mg PO HS Qty: 30 2RF Rx Instructions: administer 1-3 hours before bedtime buspirone 5 mg tablet 5 mg PO BID Qty: 60 2RF albuterol sulfate 90 mcg/actuation HFA aerosol inhaler See Rx Instructions .ROUTE .COMPLEX Qty: 18 3RF Dose Instruction: INHALE 2 PUFFS BY MOUTH EVERY 6 HOURS NEEDED FOR SHORTNESS OF BREATH Rx Instructions: INHALE 2 PUFFS BY MOUTH EVERY 6 HOURS NEEDED FOR SHORTNESS OF BREATH azithromycin 250 MG tablet 250 mg PO DIRECTED Qty: 6 0RF Rx Instructions: Take two (2) tablets on day #1, then one (1) tablet day #2 thru #5 methylprednisolone 4 MG tablet 4 mg PO DIRECTED Qty: 21 0RF Rx Instructions: Take as directed on package instructions Referrals Follow up/Referrals: Provider,Referral, MD [Primary Care Provider] - See instructions Activity Restrictions/Add. Instructions Additional Instructions/Restrictions: Please consider entering a rehabilitation program to help you discontinue further heroin use. Follow-up with your PCP or return to ER as needed for any worsening or change in your symptoms. Clinical Impressions Clinical Impression: Heroin abuse Discharge ED Provider: Barry Evangelista General Adult HPI <MARLY Minor - Last Filed: 11/08/23 15:27> General Chief complaint: Recheck/Abnormal Lab/Rx Stated complaint: trouble breathing through Lt nostril Time Seen by Provider: 11/08/23 14:38 History of Present Illness HPI narrative: Patient presents for evaluation after snorting heroin. Patient's complaint is that she feels like she cannot breathe out of her nose and she does not feel good but is not specific in her complaint any further. Patient states that she snorted heroin. Patient reports that she has not felt well for 2 or 3 days with a sinus infection . Patient normally snorts heroin 2-3 times a day most every day but has only done it once today approximately an hour prior to arrival. Patient is asking for Narcan despite being awake with a GCS of 15. Patient states that she is overdose 3-4 times previously. She states that the sensation that she is feeling makes her feel like that she is going to overdose. Patient denies chest pain fever chills hemoptysis hematochezia melena nausea vomiting diarrhea headache. Related Data Home Medications Medication Instructions Recorded Confirmed buprenorphine 8 mg-naloxone 2 mg 2 tab sublingual DAILY 06/19/20 06/19/20 sublingual tablet Previous Rx's Medication Instructions Recorded amoxicillin 875 mg tablet 875 mg PO BID #20 tabs 06/19/20 buspirone 5 mg tablet 5 mg PO BID #60 tabs 06/19/20 lisinopril 10 1 tab PO DAILY #90 tabs 06/19/20 mg-hydrochlorothiazide 12.5 mg tablet norgestimate-ethinyl estradiol 1 tab PO DAILY #28 tabs 06/19/20 0.18 mg/0.215mg/0.25mg-35 mcg(28)tablet (Tri-Sprintec (28)) ropinirole 1 mg tablet 1 mg PO HS #30 tabs 06/19/20 albuterol sulfate 90 mcg/actuation See Rx Instructions .Route 07/14/20 aerosol inhaler .COMPLEX #18 grams azithromycin 250 mg tablet 250 mg PO DIRECTED #6 tabs 07/22/21 methylprednisolone 4 mg tablet 4 mg PO DIRECTED #21 tabs 07/22/21 naloxone 4 mg/actuation nasal 4 mg intranasal Q2M PRN opioid 11/08/23 spray (Narcan) overdose #2 ea Allergies Allergy/AdvReac Type Severity Reaction Status Date / Time No Known Allergies Allergy Verified 06/19/20 08:42 [facility] <MARLY Minor - Last Filed: 11/08/23 15:27> [facility] Disclaimer: The information contained in this section may have been updated after the patient was seen, as this information can be updated by other users. Medical History Dysmenorrhea RLS (restless legs syndrome) Family History Other No significant family history Social History Smoking Status: Current every day smoker alcohol intake: never substance use type: former substance user and heroin current occupational status: employed Travel in the last 8 weeks: None household members: family housing: house <MARLY Minor - Last Filed: 11/08/23 15:27> ROS Obtained: Yes Systems reviewed as appropriate & no additional complaints except as documented Physical Exam <MARLY Minor - Last Filed: 11/08/23 15:27> General General appearance: alert and in no apparent distress Head Head exam: atraumatic and normal inspection Eye Eye exam: Present normal appearance and EOMI ENT ENT exam: Present normal exam, normal oropharynx, mucous membranes moist, normal external ear exam (Patient has poor dentition and dental caries) and other (Bilateral nasal passageways are open and patent. There is fogging of the otoscope on both sides. There is mild clear rhinorrhea out of both nares) Neck Neck exam: Present normal inspection Chest Chest inspection: Present normal inspection and symmetric chest wall rise Respiratory Respiratory exam: Present normal lung sounds bilaterally; Absent respiratory distress, wheezes or stridor Cardiovascular Cardiovascular exam: Present regular rate, normal rhythm and normal heart sounds Abdominal Exam Abdominal exam: Present soft; Absent tenderness Extremities Exam Extremities exam: Present normal inspection and full ROM Neurological Exam Neurological exam: Present alert, oriented X3, CN II-XII intact, normal gait, motor sensory deficit and other (GCS = 15) Psychiatric Psychiatric exam: Present normal affect and normal mood Skin Skin exam: Present warm, dry and normal color Medical Decision Making <MARLY Minor - Last Filed: 11/08/23 15:27> Medical Records Medical records reviewed: Yes I reviewed the patient's medical records. Guille Inquiry Pt receiving controlled substance: No Vital Signs: 11/08/23 14:27 11/08/23 15:00 11/08/23 15:35 Temperature 98.0 F 98.0 F Temperature Source Oral Oral Pulse Rate 65 Pulse Rate [Apical] 72 70 Respiratory Rate 18 12 18 Blood Pressure 134/87 Blood Pressure [Right Arm] 138/88 134/87 Blood Pressure Mean [Right Arm] 104 102 Blood Pressure Source Blood Pressure Source [Right Arm] Automatic Cuff Automatic Cuff Blood Pressure Position [Right Arm] Sitting Sitting 02 Sat by Pulse Oximetry 100 99 100 Oxygen Delivery Method Room Air Room Air 11/08/23 15:35 Temperature 98.0 F Temperature Source Oral Pulse Rate 70 Pulse Rate [Apical] Respiratory Rate 18 Blood Pressure 134/87 Blood Pressure [Right Arm] Blood Pressure Mean [Right Arm] Blood Pressure Source Automatic Cuff Blood Pressure Source [Right Arm] Blood Pressure Position [Right Arm] 02 Sat by Pulse Oximetry Oxygen Delivery Method Room Air Medical Decision Narrative: In summary patient is a 38-year-old female who presents to the emergency department for evaluation of abnormal sensation after snorting heroin. Patient is hemodynamically stable satting at 100% on room air breathing 18 times a minute upon arrival, afebrile. Physical exam is unremarkable and nonfocal including a Puneet Coma Score 15 widely patent nares normal breath sounds without adventitious sounds normal heart rate EKG shows normal sinus rhythm on the bedside monitor satting at 100% on room air. Differential diagnosis includes illicit substance use other than heroin versus upper respiratory tract infection versus normal sequela of snorting heroin. Patient has no signs or symptoms of ACS PE cerebrovascular accident to prompt further workup and has a normal neurologic exam no focal deficits. Patient is well outside of the normal window for concern of overdose and her vital signs are stable however patient voices anxiety about going home stating I feel like I am going to overdose . I had a long discussion with the patient and her mother via shared decision making she elected to be discharged home with a prescription for Narcan. Patient will consider rehabilitation services to get off of heroin with medical assistance. <Barry Evangelista MD - Last Filed: 11/09/23 07:15> Vital Signs: 11/08/23 14:27 11/08/23 15:00 11/08/23 15:35 Temperature 98.0 F 98.0 F Temperature Source Oral Oral Pulse Rate 65 Pulse Rate [Apical] 72 70 Respiratory Rate 18 12 18 Blood Pressure 134/87 Blood Pressure [Right Arm] 138/88 134/87 Blood Pressure Mean [Right Arm] 104 102 Blood Pressure Source Blood Pressure Source [Right Arm] Automatic Cuff Automatic Cuff Blood Pressure Position [Right Arm] Sitting Sitting 02 Sat by Pulse Oximetry 100 99 100 Oxygen Delivery Method Room Air Room Air 11/08/23 15:35 Temperature 98.0 F Temperature Source Oral Pulse Rate 70 Pulse Rate [Apical] Respiratory Rate 18 Blood Pressure 134/87 Blood Pressure [Right Arm] Blood Pressure Mean [Right Arm] Blood Pressure Source Automatic Cuff Blood Pressure Source [Right Arm] Blood Pressure Position [Right Arm] 02 Sat by Pulse Oximetry Oxygen Delivery Method Room Air Medical Decision Narrative: In summary patient is a 38-year-old female who presents to the emergency department for evaluation of abnormal sensation after snorting heroin. Patient is hemodynamically stable satting at 100% on room air breathing 18 times a minute upon arrival, afebrile. Physical exam is unremarkable and nonfocal including a Aston Coma Score 15 widely patent nares normal breath sounds without adventitious sounds normal heart rate EKG shows normal sinus rhythm on the bedside monitor satting at 100% on room air. Differential diagnosis includes illicit substance use other than heroin versus upper respiratory tract infection versus normal sequela of snorting heroin. Patient has no signs or symptoms of ACS PE cerebrovascular accident to prompt further workup and has a normal neurologic exam no focal deficits. Patient is well outside of the normal window for concern of overdose and her vital signs are stable however patient voices anxiety about going home stating I feel like I am going to overdose . I had a long discussion with the patient and her mother via shared decision making she elected to be discharged home with a prescription for Narcan. Patient will consider rehabilitation services to get off of heroin with medical assistance. I was consulted by the MONSTER, and we discussed the complexity of the problems being addressed. I approved the treatment and management plan for this patient?s care in the Emergency Department, thus performing a substantive portion of the medical decision making. Barry Evangelista MD Critical Care <MARLY Minor - Last Filed: 11/08/23 15:27> Critical Care Time Critical Care Time: No
[2023-11-08 15:00] VITALS: BP 134/87; PULSE 65; RESP 12; O2SAT 99
[2023-11-08 15:35] VITALS: BP 134/87; PULSE 70; RESP 18; TEMP 36.7; O2SAT 100
== END 2023-11-08 15:35 | disposition home or self-care (01) ==
LOC: UTC 14:31 → ER 14:33
PROVIDERS: Emergency Provider Emergency Medicine
DX: F11.188 Opioid abuse with other opioid-induced disorder (principal); F17.210 Nicotine dependence, cigarettes, uncomplicated; I10 Essential (primary) hypertension
CPT/HCPCS: 99283

== ENCOUNTER 2024-11-30 11:08 | Outpatient (CLI) | payer OTHER, SELFPAY ==
[2024-11-30 18:33] LABS: Basophils % 0.5 % (0.1-2.0); Eosinophils # 0.1 Kmm3 (0.0-0.4); Eosinophils % 1.4 % (0.1-12.0); Hematocrit 50.5 % (37.0-47.0); Hemoglobin 16.1 g/dL (12.2-16.2); Lymphocytes # 3.1 K/mm3 (0.7-4.5); Lymphocytes % 48.5 % (10-50); Mean Corpuscular HGB Conc 31.9 g/dL (31.8-35.4); Mean Corpuscular Hemoglobin 27.2 pg (27.0-31.2); Mean Corpuscular Volume 85.3 fl (81-99); Mean Platelet Volume 9.9 fl (7.4-10.4); Monocytes # 0.5 K/mm3 (0.1-1.0); Monocytes % 7.7 % (1.7-9.3); Neutrophils # 2.7 K/mm3 (1.8-7.8); Neutrophils % 41.9 % (37.0-80.0); Nucleated Red Blood Cells # 0 10^3/uL; Nucleated Red Blood Cells % 0 %; Platelet Count 218 K/mm3 (142-424); Red Blood Count 5.92 M/mm3 (4.20-5.40); Red Cell Distribution Width 13.7 % (11.5-17.5); Red Cell Distribution Width-SD 42.5 fL; White Blood Count 6.4 K/mm3 (4.8-10.8)
[2024-11-30 19:22] LABS: Albumin Level 4.8 g/dl (3.5-5.0); Chloride 105 mmol/L (98-107); Sodium 139 mmol/L (136-145)
[2024-11-30 19:25] LABS: Alanine Aminotransferase 54 U/L (12-78); Albumin/Globulin Ratio 1.4 (1.1-1.8); Alkaline Phosphatase 91 U/L (38-126); Aspartate Amino Transferase 51 U/L (14-36); Bilirubin,Total 0.7 mg/dl (0.2-1.3); Blood Urea Nitrogen 7 mg/dl (7-17); Calcium 9.4 mg/dl (8.4-10.2); Carbon Dioxide 24 mmol/L (22.0-30.0); Cholesterol 177 mg/dl (140-200); Estimated Glomerular Filt Rate 70 ml/min (>60); GFR (African American) 85 ML/MIN (>60); Globulin 3.5 g/dL (1.3-3.2); Glucose 112 mg/dl (74-100); Total Protein,Serum 8.3 g/dl (6.3-8.2); Triglycerides 149 mg/dl (30-150); VLDL Cholesterol 30 mg/dL (0-40)
[2024-11-30 19:26] LABS: Chol/HDL Ratio 3.8 (1-3.5); HDL Cholesterol 46 mg/dl (40-60)
[2024-11-30 19:36] LABS: Direct LDL Cholesterol 95.39 mg/dL (100-129)
[2024-11-30 19:56] LABS: Thyroid Stimulating Hormone 1.43 uIU/mL (0.465-4.68)
== END 2024-11-30 23:59 | disposition home or self-care (01) ==
LOC: LAB.DROPOF 12-03 11:08
PROVIDERS: PCP Family Medicine; Visit Provider Family Medicine
DX: I10 Essential (primary) hypertension (principal)
CPT/HCPCS: 80053; 80061; 84443; 85025